=== PATIENT | female | born 1995 | race Caucasian/White ===

== ENCOUNTER 2021-07-17 06:35 | Emergency (ER) | payer OTHER ==
[2021-07-17 06:48] VITALS: BMI 21.4
[2021-07-17] MEDS ORDERED: AZITHROMYCIN 500 MG TABLET PO ONE ×2 (08:51→09:25)
[2021-07-17] MEDS ORDERED: LEVONORGESTREL 1.5 MG TABLET (PLAN B ONE-STEP) PO ×2 (08:55→09:18)
[2021-07-17] MEDS ORDERED: AZITHROMYCIN 500 MG TABLET ONE (09:18)
[2021-07-17] MEDS ORDERED: HIV POST EXPOSURE PROPHYLAXIS KIT NR ONE (09:27)
[2021-07-17] MEDS ORDERED: HIV POST EXPOSURE PROPHYLAXIS KIT PO ONE (09:31)
[2021-07-17 10:08] LABS: BASO % 0.8 % (0-2.0); EOS % 1.1 % (0-4.5); HEMATOCRIT 40.2 % (32.4-45.2); HEMOGLOBIN 14.1 GM/dL (10.7-15.3); LYMPH % 28.1 % (8-40); MCH 33.6 pg (25.7-33.7); MCHC 35.1 g/dl (32.0-36.0); MEAN CELL VOLUME 95.8 fl (80-96); MEAN PLT VOLUME 6.9 fl (7.5-11.1); PLATELET COUNT 411 10^3/uL (134-434); RDW 13.7 % (11.6-15.6); WHITE BLOOD COUNT 8.4 K/mm3 (4.0-10.0)
[2021-07-17 10:15] LABS: EPI CELLS 6 /uL (0-25.1); HYALINE CASTS 2 /uL (0-3.1); PH,URINE 6.5 (5.0-8.0); URINE APPEARANCE CLOUDY; URINE BACTERIA >9,000 /uL (0-1359); URINE BILIRUBIN NEGATIVE (NEGATIVE); URINE COLOR YELLOW; URINE GLUCOSE (UA) NEGATIVE (NEGATIVE); URINE KETONE NEGATIVE (NEGATIVE); URINE LEUK ESTERASE 2+ (NEGATIVE); URINE NITRITE POSITIVE (NEGATIVE); URINE PROTEIN NEGATIVE (NEGATIVE); URINE RBC 37 /uL (0-23.9); URINE UROBILINOGEN 0.2 mg/dL (0.2-1.0); URINE WBC 113 /uL (0-25.8)
[2021-07-17 10:36] LABS: CALCIUM 9.4 mg/dL (8.5-10.1)
[2021-07-17 10:37] LABS: ALBUMIN 4.2 g/dl (3.4-5.0); BLOOD UREA NITROGEN 11.1 mg/dL (7-18)
[2021-07-17 10:40] LABS: CREATININE 0.7 mg/dL (0.55-1.3)
[2021-07-17 10:42] LABS: BILIRUBIN,TOTAL 0.4 mg/dL (0.2-1)
[2021-07-17 13:32] VITALS: BP 118/76; PULSE 90; TEMP 97.9
[2021-07-17 14:08] LABS: SYPHILIS W/ RPR CONF NON-REACTIVE (NONREACTIVE)
[2021-07-17 14:37] LABS: HIV INTERPRETATION NEGATIVE (NEGATIVE)
== END 2021-07-17 13:32 | disposition home or self-care (01) ==
LOC: JER 06:35
DX: T74.21XA Adult sexual abuse, confirmed, initial encounter (principal)
CPT/HCPCS: 36415; 80053; 81003; 84703; 85025; 86704; 86706; 86780; 86803; 87086; 87186; 87340; 87389; 87491; 87517; 87591; 96372; 99284-25